=== PATIENT | female | born 1980 | race Caucasian/White ===

== ENCOUNTER → 2025-02-27 | Outpatient (CLI) | payer MEDICAID, SELFPAY ==
--- NOTE | 2025-02-27 11:30 | LES_PTH ---
[id number] U#:[id number] AGE/SX: 44/F ROOM: RE02/27/[address]: Dr. Anshu Morales MD : 1980 BED: DIS: 02/27/2025 SPEC #: [id number] RECD: 02/27/25 13:54 STATUS: DELONTE LEYVABenjamin #: [id number] JOVANNI: 02/27/25 11:[address]: Anshu Morales DEPT: SURGICAL PATHOLOGY RECD BY: Rocky Keith Tissues: A - Skin of forearm, NOS B - Skin of forearm, NOS Procedures: Surgery Specimen Level III HEADER OPERATION: Excision and closure lipoma right arm x2 PRE-OP DIAGNOSIS: Lipoma - right arm x2 TISSUE SUBMITTED: A- Radial lesion right forearm, B- Ulnar lesion right forearm MICROSCOPIC DIAGNOSIS A. Soft tissue, right radial forearm, excision: * Mature adipose consistent with lipoma. B. Soft tissue, right ulnar forearm, excision: * Mature adipose consistent with lipoma. MICROSCOPIC DESCRIPTION Slides are reviewed. GROSS DESCRIPTION Received in 2 formalin containers labeled patient's name and date of .? Designated as: ? A.? Right radial forearm lesion is a 1.5 x 1.0 x 0.3 cm aggregate of chavis-yellow soft tissue.? Submitted in toto in 1 cassette. B.? Right ulnar forearm lesion is a 1.2 x 1.0 x 0.2 cm disrupted, chavis-yellow portion of soft tissue.? Submitted in toto in 1 cassette. CA 02/27/2025 CPT:40992b0
== END | disposition home or self-care (01) ==
PROVIDERS: Visit Provider Surgery Plastic and Reconstructive Surgery
DX: D17.21 Benign lipomatous neoplasm of skin and subcutaneous tissue of right arm (principal)
CPT/HCPCS: 88305; 88304

== ENCOUNTER → 2025-03-11 | Outpatient (CLI) | payer MEDICAID, SELFPAY ==
--- NOTE | 2025-03-11 07:47 | US_ITS ---
PROCEDURE: BILATERAL EXT NON VASC LIMITED/SOFT TISS 03/11/2025 REASON FOR EXAM: BILATERAL AXILLARY BREAST TISSUE TECHNIQUE: BILATERAL EXT NON VASC LIMITED/SOFT TISS COMPARISON: No comparisons available. FINDINGS: There are no suspicious sonographic findings in the area of patient's concern in the bilateral axilla. There is a normal-appearing right axillary lymph node measuring 1.3 x 0.8 x 0.5 cm. US/Ext Non Vasc Limited/Soft Tiss IMPRESSION: No suspicious sonographic findings in the bilateral axilla. Reading Location: [id number]
--- NOTE | 2025-03-11 07:47 | US_ITS ---
PROCEDURE: BILATERAL EXT NON VASC LIMITED/SOFT TISS 03/11/2025 REASON FOR EXAM: BILATERAL AXILLARY BREAST TISSUE TECHNIQUE: BILATERAL EXT NON VASC LIMITED/SOFT TISS COMPARISON: No comparisons available. FINDINGS: There are no suspicious sonographic findings in the area of patient's concern in the bilateral axilla. There is a normal-appearing right axillary lymph node measuring 1.3 x 0.8 x 0.5 cm. US/Ext Non Vasc Limited/Soft Tiss IMPRESSION: No suspicious sonographic findings in the bilateral axilla. Reading Location: [id number]
== END | disposition home or self-care (01) ==
LOC: OPUS 07:43
PROVIDERS: PCP Student in an Organized Health Care Education/Training Program; Referring Provider Surgery Plastic and Reconstructive Surgery; Visit Provider Surgery Plastic and Reconstructive Surgery
DX: Z00.00 Encounter for general adult medical examination without abnormal findings (principal)
CPT/HCPCS: 76882

== ENCOUNTER 2025-04-14 05:55 | Day surgery (SDC) | payer MEDICAID, SELFPAY ==
--- NOTE | 2025-04-01 20:45 | PAT.ANE_ITS ---
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 When Was Last Pacemaker Check QUESTION #4 FULL TEXT: You/Your Family Experience fever (hyperthermia) with Anesthesia Last Oral Intake Last Oral intake: Last Oral Intake NPO since Meds taken in AM with sips of water? Meds patient instructed to take am of surgery PONV PONV - corporate securities research analyst: PONV - corporate securities research analyst Female Yes 04/01/25 13:43 HX of Motion Sickness No 04/01/25 13:43 HX of N/V After Surgery Yes 04/01/25 13:43 Non-Smoker Yes 04/01/25 13:43 Duration of Surgery greater No 04/01/25 13:43 than 60 minutes Number of Risk Factors 3 04/01/25 13:43 PONV Score Moderate Risk 04/01/25 13:43 Height & Weight Height & Weight: Anesthesia: Height & Weight Height 5 ft 7 in 03/13/25 15:17 Respiratory Assessment Respiratory Assessment - corporate securities research analyst: Respiratory Tract Infection Hx - corporate securities research analyst Hx Respiratory Tract Infection No 04/01/25 13:43 STOP Sleep Apnea STOP Sleep Apnea - corporate securities research analyst: STOP Sleep Apnea - corporate securities research analyst Hx Hypertension No 04/01/25 13:43 Hx Sleep Apnea No 04/01/25 13:43 CPAP BIPAP Do you snore loudly (louder No 04/01/25 13:43 than talking or can be heard Do you often feel tired/ No 04/01/25 13:43 fatigued/ sleepy during daytime? Has anyone observed you stop No 04/01/25 13:43 breathing during sleep? STOP Results Negative 04/01/25 13:43 QUESTION #5 FULL TEXT : Do you snore loudly (louder than talking or can be heard through closed doors)? 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 Specify any problems Hx of Preganancy in last 3 No 04/01/25 13:43 Months Nurse Filling Out Transfusion [facility] 04/01/25 13:43 & Questions: Date: 04/01/25 04/01/25 13:43 Time: 13:53 04/01/25 13:43 Patient unable to answer at this time (ie. confused, unrespo /Reproduction History /Reproductive History - corporate securities research analyst: /Reproductive Hx- corporate securities research analyst Hx Now No 04/01/25 13:43 Gestational Age (in weeks): EDC: Hx Hx Para Hx Section SAB No 04/01/25 13:43 [facility] Medical History (Updated 04/01/25 @ 13:52 by Bessie Smith) Arthritis Low iron Anemia Easy bruising Migraine headache History of ulceration History of GI bleed History of hiatal hernia Gastric reflux History of IBS Former smoker Asthma History of echocardiogram History of stress test Cardiology follow-up encounter Home Medications ?Medication ?Instructions ?Recorded ?Last Taken ?Type albuterol sulfate 90 mcg/actuation 2 inh inhalation Q4 H PRN shortness 05/02/24 Unknown History aerosol inhaler of breath or wheezing baclofen 5 mg tablet 5 mg PO TID 05/02/24 Unknown History benzoyl peroxide 10 % topical 1 applic topical DAILY 0 05/02/24 Unknown History cleanser cholecalciferol (vitamin D3) 50 100 mcg PO DAILY 05/02 Unknown History mcg (2,000 unit) capsule dextroamphetamine-amphetamine 10 15 mg PO DAILY Unknown History mg tablet dextroamphetamine-amphetamine ER 1 cap PO QAM 05/02/24 Unknown History 25 mg 24hr capsule,extend release hydrocodone-acetaminophen 5-325mg 1 tab PO BID PRN neal n 05/02/24 Unknown History 5mg-325mg metoclopramide HCl 10 mg tablet 10 mg PO 4X/DAY Unknown History metronidazole 0.75 % topical cream 1 applic topical BI D 05/02/24 Unknown History ondansetron 4 mg disintegrating 4 mg PO Q8 PRN nausea and vomiting 05/02/24 Unknown History tablet rimegepant 75 mg disintegrating 75 mg PO QDAY PRN migr kendrick headache 05/02/24 Unknown History tablet (Nurtec ODT) spironolactone 50 mg tablet 50 mg PO QDAY 05/02/24 Unk nown History valacyclovir 1 gram tablet 1,000 mg PO QDAY PRN cold s ores 05/02/24 Unknown History ascorbic acid (vitamin C) 1,000 mg 2 g PO DAILY Unknown History tablet (C-1000) calcium 500 mg tablet 600 mg PO DAILY 04/01/25 Unk nown History colchicine 0.6 mg tablet 0.6 mg PO DAILY 04/01/25 Unk nown History omega 4-pmy-rdr-fish oil 1,200 mg 1 cap PO DAILY 04/01 Unknown History (144 mg-216 mg) capsule (Fish Oil) saffron extract 176.5 mg tablet 88 mg PO DAILY 5 Unknown History Allergy/AdvReac Type Severity Reaction Status Date / Time morphine Allergy Intermediate Itching Verified 04/01/25 13:33 gabapentin AdvReac Nausea Verified 03/13/25 15:18 sumatriptan AdvReac Chest Verified 03/13/25 15:18 tightness tramadol AdvReac Nausea Verified 03/13/25 15:18 Family History Mother Asthma COPD (chronic obstructive pulmonary disease) Diabetes Sister Asthma CVA (cerebral vascular accident) Endometriosis Grandfather COPD (chronic obstructive pulmonary disease) Diabetes Hypertension Kidney disease Myocardial infarction Uncle COPD (chronic obstructive pulmonary disease) Hypertension Sister Endometriosis Grandmother Endometriosis Hypertension Other Breast cancer Cervical cancer Surgical History (Updated 04/01/25 @ 13:44 by Bessie Smith) History of cholecystectomy H/O carpal tunnel repair Hx of tonsillectomy H/O ovarian cystectomy H/O oophorectomy H/O section H/O: hysterectomy Social History adopted: No number of children: 4 current occupational status: unemployed Smoking Status: Former smoker how long ago did patient quit smokin alcohol intake: current alcohol intake frequency: holidays/special occasions only substance use type: does not use caffeine: Yes seatbelt use: always Audit: Pertinent Findings Pertinent Findings EKG Perinent findings: 05/2023: sinus bradycardia, narrow QRS Echo (EF%) pertinent findings: 11/26/2023: LVEF 55-60% Consult pertinent findings: 11/2023 cardiology note: overall patient does appear to have occasional episodes of bradycardia on her monitor; however these are seen late night/speech therapist early intervention. Her QRS is narrow; and she does have episodes of tachycardia in phil low 100s during the day on her monitor. Moreover her stress test performed last year showed normal chronotropic competence. As such at present ostensibly her conduction system appears to be normal. An echo performed in Sep 2020 showed no structural abnormalities of her heart and CT coronary performed at the same time showed normal coronary anatomy/no obstructive CAD. With all this extensive testing no clear evidence of conduction disease is apparent. At present her dizziness appears to be likely noncardiac. She has discussed this with her other physicians and carries a diagnosis of dysautonomia. No further cardiac workup required. Recommendation Anesthesia Recommendation Anesthesia recommendation: OPTIMIZED for anesthesia
[2025-04-14] VITALS (11 sets, daily range): BP systolic 126–187; BP diastolic 85–94; PULSE 62–78; RESP 16; TEMP 36.1–36.6; O2SAT 96–100; BMI 32.1
[2025-04-14] MEDS: Lactated Ringers 1,000 ML 15 ML IV (06:35)
--- NOTE | 2025-04-14 07:20 | HP.PCM.SX_ITS ---
HPI - General HPI Narrative BIB MONTELONGO, is a 44 F who presents with axillary accessory breast and nipple tissue. Presents today for removal. Current Encounter (DATE OF SURGERY H&P UPDATE): I saw and examined the patient this morning in pre-operative holding. We discussed risks and benefits of today's surgery and they would like to proceed. NO CHANGE in health history since last seen and evaluated. Ready to proceed with surgery. [facility] Medical History Arthritis Low iron Anemia Easy bruising Migraine headache History of ulceration History of GI bleed History of hiatal hernia Gastric reflux History of IBS Former smoker Asthma History of echocardiogram History of stress test Cardiology follow-up encounter Home Medications ?Medication ?Instructions ?Recorded ?Last Taken ?Type albuterol sulfate 90 mcg/actuation 2 inh inhalation Q4 H PRN shortness 05/02/24 Unknown History aerosol inhaler of breath or wheezing baclofen 5 mg tablet 5 mg PO TID 05/02/24 Unknown History benzoyl peroxide 10 % topical 1 applic topical DAILY 0 05/02/24 Unknown History cleanser cholecalciferol (vitamin D3) 50 100 mcg PO DAILY 05/02 Unknown History mcg (2,000 unit) capsule dextroamphetamine-amphetamine 10 15 mg PO DAILY Unknown History mg tablet dextroamphetamine-amphetamine ER 1 cap PO QAM 05/02/24 Unknown History 25 mg 24hr capsule,extend release hydrocodone-acetaminophen 5-325mg 1 tab PO BID PRN neal n 05/02/24 Unknown History 5mg-325mg metoclopramide HCl 10 mg tablet 10 mg PO 4X/DAY Unknown History metronidazole 0.75 % topical cream 1 applic topical BI D 05/02/24 Unknown History ondansetron 4 mg disintegrating 4 mg PO Q8 PRN nausea and vomiting 05/02/24 Unknown History tablet rimegepant 75 mg disintegrating 75 mg PO QDAY PRN migr kendrick headache 05/02/24 Unknown History tablet (Nurtec ODT) spironolactone 50 mg tablet 50 mg PO QDAY 05/02/24 Unk nown History valacyclovir 1 gram tablet 1,000 mg PO QDAY PRN cold s ores 05/02/24 Unknown History ascorbic acid (vitamin C) 1,000 mg 2 g PO DAILY Unknown History tablet (C-1000) calcium 500 mg tablet 600 mg PO DAILY 04/01/25 Unk nown History colchicine 0.6 mg tablet 0.6 mg PO DAILY 04/01/25 Unk nown History omega 2-itq-rhn-fish oil 1,200 mg 1 cap PO DAILY 04/0104/01/25 History (144 mg-216 mg) capsule (Fish Oil) saffron extract 176.5 mg tablet 88 mg PO DAILY 5 Unknown History Allergy/AdvReac Type Severity Reaction Status Date / Time morphine Allergy Intermediate Itching Verified 04/14/25 06:32 gabapentin AdvReac Nausea Verified 04/14/25 06:32 sumatriptan AdvReac Chest Verified 04/14/25 06:32 tightness tramadol AdvReac Nausea Verified 04/14/25 06:32 Family History Mother Asthma COPD (chronic obstructive pulmonary disease) Diabetes Sister Asthma CVA (cerebral vascular accident) Endometriosis Grandfather COPD (chronic obstructive pulmonary disease) Diabetes Hypertension Kidney disease Myocardial infarction Uncle COPD (chronic obstructive pulmonary disease) Hypertension Sister Endometriosis Grandmother Endometriosis Hypertension Other Breast cancer Cervical cancer Surgical History History of cholecystectomy H/O carpal tunnel repair Hx of tonsillectomy H/O ovarian cystectomy H/O oophorectomy H/O section H/O: hysterectomy Social History adopted: No number of children: 4 current occupational status: unemployed Smoking Status: Former smoker how long ago did patient quit smokin alcohol intake: current alcohol intake frequency: holidays/special occasions only substance use type: does not use caffeine: Yes seatbelt use: always Vital Signs Vital Signs Vital Signs: 04/14/25 06:36 04/14/25 06:36 Temperature 97 F L Temperature Source Temporal Pulse Rate 64 Respiratory Rate 16 Respiratory Pattern Normal Blood Pressure 126/89 H Blood Pressure Mean 101 Blood Pressure Source Monitor Blood Pressure Position Semi-Fowlers Blood Pressure Location Right Arm Pulse Ox 100 Oxygen Delivery Method Room Air Weight Weight: 205 lb 0.478 oz Body Mass Index (BMI) 32.1 Physical Exam Narrative No axillary lymphadenopathy She does have significant axillary accessory breast tissue. 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 The benefits and alternatives of this surgery were also discussed. All of their questions were answered, and they agreed to proceed with surgery. I reiterated the above risks today in pre-operative holding when I marked her. She was in agreement with the site markings and planned resection. I also talked to her about the risks of lymphedema developing, as well as the risks of asymmetries and poor scaring/need for revision or wound care, and damage to surrounding structures (nerves/lymphatics). She was in agreement and was accepting of these risks and wanted to proceed. INTERVAL H&P PLAN, DATE OF SURGERY: We will proceed with surgery today.
--- NOTE | 2025-04-14 07:22 | PRE.ANES_ITS ---
ASA Classification* ASA Classification ASA Classification: 2 Assessment & Plan Anesthesia* Anesthesia Assessment Anesthesia Assessment: Discussed sedation and/or anesthesia options, risks, benefits, and alternatives with patient/parents/legal guardian/POA. Questions invited. The patient/parents/legal guardian/POA seems to understand and agrees to proceed with anesthesia plan. Reviewed the physical assessment, medical history, allergy history and patient home medications list prior to surgery/procedure/anesthetic and documented any changes. Performed airway and anesthesia risk assessments. Anesthesia Type Anesthesia Type: General History Source History Obtained from:: Patient and Chart Anesthesia Focused Assessment* Temperature: 97 F Pulse Rate: 64 Blood Pressure: 126/89 Respiratory Rate: 16 Pulse Ox: 100 Oxygen Delivery Method: Room Air Airway Assessment Mouth opens: >3 cm Mallampati Score: II Teeth Condition: Caps/Crowns (Patient has several crowns. 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 When Was Last Pacemaker Check QUESTION #4 FULL TEXT: You/Your Family Experience fever (hyperthermia) with Anesthesia Last Oral Intake Last Oral intake: Last Oral Intake NPO since 20:00 04/14/25 06:36 Meds taken in AM with sips of No 04/14/25 06:36 water? Meds patient instructed to take am of surgery PONV PONV - mechanical manager: PONV - mechanical manager Female Yes 04/01/25 13:43 HX of Motion Sickness No 04/01/25 13:43 HX of N/V After Surgery Yes 04/01/25 13:43 Non-Smoker Yes 04/01/25 13:43 Duration of Surgery greater No 04/01/25 13:43 than 60 minutes Number of Risk Factors 3 04/01/25 13:43 PONV Score Moderate Risk 04/01/25 13:43 Height & Weight Height & Weight: Anesthesia: Height & Weight Height 5 ft 7 in 04/14/25 06:36 Weight: 93 kg 04/14/25 06:36 Body Mass Index (BMI) 32.1 04/14/25 06:36 Respiratory Assessment Respiratory Assessment - mechanical manager: Respiratory Tract Infection Hx - mechanical manager Hx Respiratory Tract Infection No 04/01/25 13:43 STOP Sleep Apnea STOP Sleep Apnea - mechanical manager: STOP Sleep Apnea - mechanical manager Hx Hypertension No 04/01/25 13:43 Hx Sleep Apnea No 04/01/25 13:43 CPAP BIPAP Do you snore loudly (louder No 04/01/25 13:43 than talking or can be heard Do you often feel tired/ No 04/01/25 13:43 fatigued/ sleepy during daytime? Has anyone observed you stop No 04/01/25 13:43 breathing during sleep? STOP Results Negative 04/01/25 13:43 QUESTION #5 FULL TEXT : Do you snore loudly (louder than talking or can be heard through closed doors)? 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 Specify any problems Hx of Preganancy in last 3 No 04/01/25 13:43 Months Nurse Filling Out Transfusion [facility] 04/01/25 13:43 & Questions: Date: 04/01/25 04/01/25 13:43 Time: 13:53 04/01/25 13:43 Patient unable to answer at this time (ie. confused, unrespo /Reproduction History /Reproductive History - mechanical manager: /Reproductive Hx- mechanical manager Hx Now No 04/01/25 13:43 Gestational Age (in weeks): EDC: Hx Hx Para Hx Section SAB No 04/01/25 13:43 Active Medications Active Medications: Current Medications Generic Name Dose Route Start Last Admin Trade Name Freq PRN Reason Stop Dose Admin Lidocaine HCl 50 ml/ 0 ml 04/14/25 07:30 Epinephrine HCl 1 mg/ Lactated OPERA.SITE 04/14/25 07:31 Ringer's 949 ml X1 ONE Lactated Ringer's 1,000 mls @ 15 mls/hr 04/14/25 06:15 04/14/25 06:35 IV 15 mls/hr .Q48H MELANY Administration PFSH Medical History Arthritis Low iron Anemia Easy bruising Migraine headache History of ulceration History of GI bleed History of hiatal hernia Gastric reflux History of IBS Former smoker Asthma History of echocardiogram History of stress test Cardiology follow-up encounter Home Medications ?Medication ?Instructions ?Recorded ?Last Taken ?Type albuterol sulfate 90 mcg/actuation 2 inh inhalation Q4 H PRN shortness 05/02/24 Unknown History aerosol inhaler of breath or wheezing baclofen 5 mg tablet 5 mg PO TID 05/02/24 Unknown History benzoyl peroxide 10 % topical 1 applic topical DAILY 0 05/02/24 Unknown History cleanser cholecalciferol (vitamin D3) 50 100 mcg PO DAILY 05/02 Unknown History mcg (2,000 unit) capsule dextroamphetamine-amphetamine 10 15 mg PO DAILY Unknown History mg tablet dextroamphetamine-amphetamine ER 1 cap PO QAM 05/02/24 Unknown History 25 mg 24hr capsule,extend release hydrocodone-acetaminophen 5-325mg 1 tab PO BID PRN neal n 05/02/24 Unknown History 5mg-325mg metoclopramide HCl 10 mg tablet 10 mg PO 4X/DAY Unknown History metronidazole 0.75 % topical cream 1 applic topical BI D 05/02/24 Unknown History ondansetron 4 mg disintegrating 4 mg PO Q8 PRN nausea and vomiting 05/02/24 Unknown History tablet rimegepant 75 mg disintegrating 75 mg PO QDAY PRN migr kendrick headache 05/02/24 Unknown History tablet (Nurtec ODT) spironolactone 50 mg tablet 50 mg PO QDAY 05/02/24 Unk nown History valacyclovir 1 gram tablet 1,000 mg PO QDAY PRN cold s ores 05/02/24 Unknown History ascorbic acid (vitamin C) 1,000 mg 2 g PO DAILY Unknown History tablet (C-1000) calcium 500 mg tablet 600 mg PO DAILY 04/01/25 Unk nown History colchicine 0.6 mg tablet 0.6 mg PO DAILY 04/01/25 Unk nown History omega 9-mll-rfi-fish oil 1,200 mg 1 cap PO DAILY 04/0104/01/25 History (144 mg-216 mg) capsule (Fish Oil) saffron extract 176.5 mg tablet 88 mg PO DAILY 5 Unknown History Allergy/AdvReac Type Severity Reaction Status Date / Time morphine Allergy Intermediate Itching Verified 04/14/25 06:32 gabapentin AdvReac Nausea Verified 04/14/25 06:32 sumatriptan AdvReac Chest Verified 04/14/25 06:32 tightness tramadol AdvReac Nausea Verified 04/14/25 06:32 Family History Mother Asthma COPD (chronic obstructive pulmonary disease) Diabetes Sister Asthma CVA (cerebral vascular accident) Endometriosis Grandfather COPD (chronic obstructive pulmonary disease) Diabetes Hypertension Kidney disease Myocardial infarction Uncle COPD (chronic obstructive pulmonary disease) Hypertension Sister Endometriosis Grandmother Endometriosis Hypertension Other Breast cancer Cervical cancer Surgical History History of cholecystectomy H/O carpal tunnel repair Hx of tonsillectomy H/O ovarian cystectomy H/O oophorectomy H/O section H/O: hysterectomy Social History adopted: No number of children: 4 current occupational status: unemployed Smoking Status: Former smoker how long ago did patient quit smokin alcohol intake: current alcohol intake frequency: holidays/special occasions only substance use type: does not use caffeine: Yes seatbelt use: always Review of Systems (Anesthesia) ROS Narrative System reviewed and no additional complaints, except as documented. Physical Exam Resp clear to auscultation bilaterally
--- NOTE | 2025-04-14 07:30 | BRBX_PTH ---
PATIENT: BIB MONTELONGO [place] [facility] [place][id number] AGE/SX: 44/F ROOM: RE04/14/[address]: Dr. Anshu Morales MD : 1980 BED: DIS: 04/14/2025 SPEC #: [id number] RECD: 04/14/25 09:44 STATUS: DELONTE POP #: [id number] JOVANNI: 04/14/25 07:[address]: Anshu Morales DEPT: SURGICAL PATHOLOGY RECD BY: Rocky Keith ENTERED: 04/14/25 10:52 SP TYPE: BREAST BX OTHR DR: YEIMI SUÁREZ DO Tissues: A - Right breast, NOS B - Left breast, NOS Procedures: Surgery Specimen Level IV HEADER OPERATION: Excision axillary breast tissue PRE-OP DIAGNOSIS: Axillary accessory breast tissue TISSUE SUBMITTED: A- Right axillary breast tissue, B- Left axillary breast tissue MICROSCOPIC DIAGNOSIS A. Breast, right, axillary tissue, excision: * Benign skin and subcutaneous tissue * Benign fibroadipose breast tissue B. Breast, left, axillary tissue, excision: * Benign skin and subcutaneous tissue * Benign fibroadipose breast tissue MICROSCOPIC DESCRIPTION Slides are reviewed. GROSS DESCRIPTION Received in 2 formalin containers labeled with the patient's name and date of . Designated as: A. R axillary breast tissue is a 23.3 g, 10.5 x 4.1 x 1.8 cm portion of chavis-yellow fibrofatty tissue surfaced by chavis skin. Sectioning reveals focally congested, fatty cut surfaces employee's representative sections are submitted in 2 cassettes. B. L axillary breast tissue is a 14.6 g, 10 x 3.5 x 1.3 cm portion of chavis-yellow fibrofatty tissue surfaced by chavis skin. Sectioning reveals focally congested, fatty cut surfaces. It Service Technician sections are submitted in 2 cassettes. MI 04/14/2025 CPT:[id number]
[2025-04-14] MEDS: TAS 0.05% 1000 mls w/ LR OPERA.SITE (08:20)
[2025-04-14] MEDS: Bupiv/Epi 0.25% 30 ML Vial (09:10)
--- NOTE | 2025-04-14 09:39 | PCM.POST.ANE ---
Anesthesia: Postop Eval I Current Vital Signs Temperature: 97.4 F Pulse Rate: 69 Blood Pressure: 183/88 Respiratory Rate: 16 Pulse Ox: 98 Oxygen Delivery Method: Room Air Assessment Airway patent: Yes Spontaneous unlabored respirations: Yes Mental status: Awake nausea: No Vomiting: No Anesthesia Complication: No Fluid Hydration Crystalloid volume administer (ml): 750 Total IV fluid infused: 750 Progress Note Anesthesia document: Postop Eval 1 completed: Yes
--- NOTE | 2025-04-14 11:16 | PCM.OPRPT ---
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 Secretary Specialist: Chrystal Troncoso Tasks completed by first aid nurse: Closing and Retracting Type of Anesthesia: General/Supplemental (100 cc of tumescent solution (tumescent solution being 950 cc of LR mixed with 50 cc of 1% lidocaine mixed with 1 mg of epinephrine)) RN Documented Start/Stop Times: Operation Date: 04/14/25 07:30 Case Time Into Pre-Op 04/14/25 06:00 Out of Pre-Op 04/14/25 07:32 Anesthesia Start 04/14/25 07:37 Into Room 04/14/25 07:37 Procedure Start 04/14/25 08:10 Procedure End 04/14/25 09:24 Anesthesia End 04/14/25 09:29 Out of Room 04/14/25 09:29 Into Recovery 04/14/25 09:31 Out of Recovery 04/14/25 10:22 Into Phase II Recovery 04/14/25 10:24 Procedure Start Time: 08:10 Procedure Stop Time: 09:24 Select all DRAINS/GRAFTS/IMPLANTS that apply: None Estimated Blood Loss: 10 cc Specimen collected: Yes Description of specimen(s) removed: Right and left axillary accessory breast and nipple tissue Description of surgery: Indications: Patient is a delightful 44-year-old female with axillary accessory breast tissue and nipple/areola tissue. She would like this removed. She presents today for excision. I marked her in preoperative holding and discussed markings with her extensively. She wanted the nipple/areolar tissue removed, and wanted this completed in 1 procedure if possible. She understood the risks, benefits, and alternatives to the procedure. She elected to proceed. Procedure details: Patient was correct identified in preoperative holding and taken back to the operating room where she was administered general anesthesia and prepped and draped in sterile fashion. Timeout was performed. Through 2 separate stab incisions on the superior and inferior aspects of the anticipated elliptical excision of skin in the left and right upper lateral breast/axilla, 50 cc of tumescent solution was injected in both axillary breast mounds. It was given time to take effect. The underlying subcutaneous tissue was then aspirated with power assisted liposuction and 100 cc of Lipo aspirate was removed (50 from each side) beneath the planned resection area of accessory axillary breast and nipple areolar complex tissue. The ramos were then checked and confirmed. A 10 blade scalpel was then used to make an incision through the skin bilaterally in the area of planned elliptical skin excision which included the nipple areolar complexes within the accessory breast tissue. In the plane of the liposuction (with care taken to be superficial and prevent injury to underlying lymphatics and nerves), the accessory tissue was was removed full-thickness with minimal dissection at this point after the skin had been cut as the tissue easily following the liposuction. Hemostasis was obtained with Bovie electrocautery. The tissue was sent separately as left and right axillary accessory breast tissue. The wounds were irrigated with copious amounts normal saline and Irrisept. The wounds were then closed with 3-0 PDS deep sutures followed by 3-0 Monocryl deep dermal sutures followed by 3-0 Monocryl running subcuticular sutures and Prineo tape. The patient tolerated the procedure well. She was awakened and taken the PACU in stable condition. Postoperative plan: Follow-up in 1 week for wound check and to review pathology. Surgical Findings: Improved contour following removal of the axillary excess free breast and nipple tissue Complications Complications: No Admit VTE Documentation VTE Mechan Device Prophylaxis: SCD's
== END 2025-04-14 11:20 | disposition home or self-care (01) ==
LOC: SDC 05:56 → AC 06:04
PROVIDERS: PCP Student in an Organized Health Care Education/Training Program; Referring Provider Surgery Plastic and Reconstructive Surgery; Visit Provider Surgery Plastic and Reconstructive Surgery
PROC: (CPT 19120; principal; 2025-04-14 07:15)
PROC: (CPT 19120; 2025-04-14 07:15)
DX: Q83.1 Accessory breast (principal); K21.9 Gastro-esophageal reflux disease without esophagitis; J45.909 Unspecified asthma, uncomplicated; G43.909 Migraine, unspecified, not intractable, without status migrainosus; Z79.899 Other long term (current) drug therapy; Z87.891 Personal history of nicotine dependence
CPT/HCPCS: 19120; 00400; 88305; J2405